=== PATIENT | female | born 1975 | race African-American/Black ===

== ENCOUNTER 2018-01-04 01:58 | Inpatient (IN) | payer SELFPAY ==
[2018-01-04] VITALS (7 sets, daily range): BP systolic 94–107; BP diastolic 42–72
[~2018-01-04] VITALS: Ht 165.1 cm; Wt 81.6 kg
[2018-01-04 03:35] LABS: CLARITY URINE CLEAR (CLEAR); COLOR URINE YELLOW (YELLOW); KETONES URINE NEGATIVE (NEGATIVE); LEUKOCYTE ESTERASE URINE NEGATIVE (NEGATIVE); NITRITE URINE NEGATIVE (NEGATIVE); OCCULT BLOOD URINE NEGATIVE (NEGATIVE); PROTEIN URINE NEGATIVE (NEGATIVE)
[2018-01-04 05:29] LABS: BASOPHILS % 0.3 % (0.0-2.0); EOSINOPHILS % 2.3 % (0.0-5.0); LYMPHOCYTES % 49.2 % (20.0-50.0); MEAN CORPUSCULAR HEMOGLOBIN 37.7 pg (28.0-32.0); MEAN PLATELET VOLUME 8.3 fl (7.4-10.4); MONOCYTES % 2.2 % (2.0-8.0); PLATELET 220 x1000/uL (130-400); RED BLOOD CELL COUNT 1.53 mill/uL (4.2-5.4); RED CELL DISTRIBUTION WIDTH 16.3 % (11.6-14.6)
[2018-01-04 05:36] LABS: HEMATOCRIT. 16.5 % (36.0-48.0); HEMOGLOBIN. 5.8 g/dL (12.0-16.0)
[2018-01-04 05:38] LABS: CHLORIDE 106 mEq/L (98-107)
[2018-01-04 06:02] LABS: INR 1.1; PROTHROMBIN TIME 10.9 sec (9.4-11.6)
[2018-01-04] MEDS ORDERED: GUAIFENESIN 200MG/10ML SUGAR FREE UDC PO PRN (12:00)
[2018-01-04] MEDS ORDERED: NA PHOS,M-B/NA PHOS,DI-BA ENEMA 118ML PR PRN (12:00)
[2018-01-04] MEDS ORDERED: LORAZEPAM 0.5MG TABLET PO PRN (12:00)
[2018-01-04] MEDS ORDERED: ONDANSETRON HCL 4MG/2ML VIAL IV PRN (12:00)
[2018-01-04] MEDS ORDERED: ACETAMINOPHEN 325MG TABLET PO PRN (12:00)
[2018-01-04] MEDS ORDERED: IPRATROPIUM/ALBUTEROL 0.5-3(2.5)MG/3ML NEB INH PRN (12:00)
[2018-01-04] MEDS ORDERED: CLONIDINE 0.1MG TABLET PO PRN (12:00)
[2018-01-04] MEDS: LEVOTHYROXINE SODIUM 50MCG TABLET PO SCH (12:00)
[2018-01-04] MEDS ORDERED: MAGNESIUM/ALUMINUM HYDROXIDE/SIMETHICONE 30ML UDC PO PRN (12:00)
[2018-01-04] MEDS ORDERED: DOCUSATE SODIUM 100MG CAPSULE PO PRN (12:00)
[2018-01-04] MEDS ORDERED: DIPHENHYDRAMINE 50MG/ML VIAL IV PRN (12:00)
[2018-01-04] MEDS ORDERED: NITROGLYCERIN 0.4MG TABLET SL SL PRN (12:00)
[2018-01-04] MEDS ORDERED: ONDANSETRON 4MG ODT PO PRN (12:15)
[2018-01-04 15:49] LABS: ETHANOL BLOOD < 10 mg/dL
[2018-01-04 15:50] LABS: TOTAL IRON BINDING CAPACITY 266 ug/dL (250-450)
[2018-01-04 15:53] LABS: CREATINE KINASE 85 IU/L (26-192)
[2018-01-04 15:54] LABS: T4 FREE 1.03 ng/dL (0.76-1.46)
[2018-01-04 15:55] LABS: CREATINE KINASE MB FRACTION < 0.5 ng/mL (0.5-3.6)
[2018-01-04 16:19] LABS: FOLIC ACID (FOLATE) SERUM > 20.00 ng/mL (>5.38)
[2018-01-04 16:27] LABS: VITAMIN B12 SERUM 74 pg/mL (211-911)
[2018-01-04 16:57] LABS: FERRITIN 454 ng/mL (10-291)
[2018-01-04 19:32] LABS: HEMATOCRIT 25.1 % (36.0-48.0); HEMOGLOBIN 8.7 g/dL (12.0-16.0)
[2018-01-04] MEDS: FAMOTIDINE 20MG TABLET PO SCH (20:40)
[2018-01-04] MEDS ORDERED: ZOLPIDEM TARTRATE 5MG TABLET PO PRN (21:00)
[2018-01-05] VITALS: BP 105/62
[2018-01-05 00:15] LABS: CREATINE KINASE 70 IU/L (26-192)
[2018-01-05 00:16] LABS: CREATINE KINASE MB FRACTION < 0.5 ng/mL (0.5-3.6)
[2018-01-05 00:20] LABS: HEMATOCRIT 23.9 % (36.0-48.0); HEMOGLOBIN 8.5 g/dL (12.0-16.0)
[2018-01-05 01:38] LABS: *AMPHETAMINES SCREEN URINE NEGATIVE (NEGATIVE)
[2018-01-05 01:39] LABS: *BARBITURATES SCREEN URINE NEGATIVE (NEGATIVE); *BENZODIAZEPINES SCREEN URINE NEGATIVE (NEGATIVE); *COCAINE SCREEN URINE NEGATIVE (NEGATIVE); METHADONE URINE SCREEN NEGATIVE (NEGATIVE); OPIATES URINE SCREEN NEGATIVE (NEGATIVE); PHENCYCLIDINE URINE SCREEN NEGATIVE (NEGATIVE)
[2018-01-05 01:40] LABS: CANNABINOID URINE SCREEN NEGATIVE (NEGATIVE)
[2018-01-05 04:00] VITALS: BP 98/61
[2018-01-05] MEDS: LEVOTHYROXINE SODIUM 50MCG TABLET PO SCH ×2 (05:59→10:25)
[2018-01-05 07:10] LABS: HEMATOCRIT 25.1 % (36.0-48.0); HEMOGLOBIN 8.9 g/dL (12.0-16.0)
[2018-01-05 08:00] VITALS: BP 88/47
[2018-01-05] MEDS: FAMOTIDINE 20MG TABLET PO SCH (09:00)
[2018-01-05] MEDS ORDERED: CYANOCOBALAMIN 1000MCG/ML VIAL IM SCH (09:30)
[2018-01-05 12:00] VITALS: BP 104/67
[2018-01-05 13:13] VITALS: BP 104/67
== END 2018-01-05 15:28 | disposition home or self-care (01) | DRG 663 ==
LOC: EDBEDREQTM 06:27 → EDBEDREQSVC 06:27 → EDBEDREQ 06:27 → ENRESERV 07:41 → ER 09:25 → 5WST 09:26 → EDBEDREQ 10:19 → EDBEDREQTM 10:19
PROVIDERS: ADMIT Internal Medicine; ATTEND Internal Medicine
PROC: 30233N1 Transfusion of Nonautologous Red Blood Cells into Peripheral Vein, Percutaneous Approach (ICD-10-PCS; principal; 2018-01-04)
DX: D51.9 Vitamin B12 deficiency anemia, unspecified (principal); I24.8 Other forms of acute ischemic heart disease; J45.909 Unspecified asthma, uncomplicated; E03.9 Hypothyroidism, unspecified; R79.89 Other specified abnormal findings of blood chemistry; R74.0 Nonspecific elevation of levels of transaminase and lactic acid dehydrogenase [LDH]
CPT/HCPCS: 36415; 36430; 71045; 76700; 80053; 80305; 81003; 82270; 82550; 82553; 82607; 82728; 82746; 83540; 83550; 83880; 84439; 84443; 84484; 85014; 85018; 85025; 85610; 86850; 86900; 86920; 93005; 93970; 99285; G0482; J3420; J7030; J7040; P9016